=== PATIENT | male | born 1990 | race African-American/Black ===

== ENCOUNTER 2016-06-17 11:56 | Inpatient (IN) | payer MEDICAID ==
[~2016-06-17] VITALS: Ht 177.8 cm; Wt 79.2 kg
[2016-06-17] MEDS ORDERED: SODIUM CHLORIDE 0.9% 1,000 ML IV ONE ×2 (12:50→15:00)
[2016-06-17] MEDS ORDERED: HYDROmorphone HCL 2 MG/ML VL IV ONE (13:00)
[2016-06-17] MEDS ORDERED: ONDANSETRON HCL 4 MG/2 ML VIAL IV ONE (13:00)
[2016-06-17 13:18] LABS: Basophils # (auto) 0.1 uL; Basophils % (auto) 0.5 % (0.0-2.0); Eosinophils # (auto) 0.2 uL; Hematocrit 29.6 % (41.0-53.0); Hemoglobin 10.2 g/dL (13.5-17.5); Lymphocytes # (auto) 2.7 uL; Lymphocytes % (auto) 26.1 % (10.0-50.0); Mean Corpuscular Hemoglobin 28.3 pg (28.0-32.0); Mean Corpuscular Hgb Conc. 34.3 g/dL (32.0-36.0); Mean Corpuscular Volume 82.5 fL (80.0-100.0); Mean Platelet Volume 7.9 fL (7.4-10.4); Monocytes # (auto) 0.6 uL; Monocytes % (auto) 5.6 % (0.0-12.0); Neutrophils # (auto) 6.7 uL; Neutrophils % (auto) 65.8 % (37.0-80.0); Platelet Count (auto) 210 10^3/uL (140-450); Red Cell Distribution Width 15.5 % (11.6-16.0); White Blood Cell 10.2 10^3/uL (4.4-10.8)
[2016-06-17 13:39] LABS: Lactic Acid w/Reflex 3.3 mmol/L (0.4-2.0)
[2016-06-17 13:41] LABS: Bilirubin, Total 0.5 mg/dL (0.2-1.0); Calcium 7.6 mg/dL (8.5-10.1); Magnesium 1.6 mg/dL (1.6-2.6); Total Protein 6.7 g/dL (6.4-8.2)
[2016-06-17 13:48] LABS: Potassium 1.8 mmol/L (3.5-5.1)
[2016-06-17 14:09] LABS: REFLEX LACTIC ACID YES OR NO YES
[2016-06-17] MEDS: POTASSIUM CHL 20MEQ/100ML 100 ML IV SCH ×4 (14:21→21:55)
[2016-06-17] MEDS ORDERED: NITROGLYCERIN 0.4 MG SL TAB SL PRN (14:30)
[2016-06-17] MEDS ORDERED: MORPHINE SULF INJ 2 MG/ML SYRINGE 1ML IV PRN (14:30)
[2016-06-17] MEDS ORDERED: POTASSIUM CHL 20 Meq TABLET PO ONE (14:30)
[2016-06-17] MEDS ORDERED: diphenhdrAMINE HCL 25 MG CAP PO ONE (14:45)
[2016-06-17] MEDS ORDERED: ACETAMINOPHEN 325 MG TAB PO ONE (14:45)
[2016-06-17] MEDS ORDERED: [UNRECOGNIZED DRUG - CODE] IV (14:54)
[2016-06-17 15:46] LABS: Urine RBC None Seen /hpf (0 - 3)
[2016-06-17 16:18] LABS: Urine Bilirubin Negative (Negative); Urine Blood Negative /uL (Negative); Urine Color Yellow (Yellow); Urine Glucose Normal (Normal); Urine Ketone Negative (Negative); Urine Nitrite Negative (Negative); Urine Squamous Epithelial Cell FEW /hpf (<5); Urine Urobilinogen Normal (Negative)
[2016-06-17] MEDS: MAGNESIUM SULFATE 1GM/100ML 100 ML IV SCH ×2 (16:36→19:19)
[2016-06-17] MEDS ORDERED: MAGNESIUM SULFATE 1GM/100ML 100 ML IV SCH (19:00)
[2016-06-17] MEDS: MORPHINE SULF INJ 2 MG/ML SYRINGE 1ML IV PRN ×2 (19:19→23:04)
[2016-06-17 20:00] VITALS: BP 141/84
[2016-06-17] MEDS ORDERED: D5W 5% IV SCH (20:00)
[2016-06-17] MEDS ORDERED: AMPHOTERICIN B IV SCH (20:00)
[2016-06-17 22:01] VITALS: BP 141/84
[2016-06-17 22:31] LABS: Calcium 6.5 mg/dL (8.5-10.1); Magnesium 1.8 mg/dL (1.6-2.6)
[2016-06-17 22:33] LABS: Potassium 2.1 mmol/L (3.5-5.1)
[2016-06-18] MEDS: SOD CHL 0.45% WITH 20MEQ KCL 1,000 ML IV SCH ×4 (00:29→20:52)
[2016-06-18] MEDS ORDERED: POTASSIUM CHL 20 Meq TABLET PO ONE ×2 (02:00→10:45)
[2016-06-18] MEDS: MORPHINE SULF INJ 2 MG/ML SYRINGE 1ML IV PRN ×2 (03:12→08:21)
[2016-06-18] MEDS: ONDANSETRON HCL 4 MG/2 ML VIAL IV PRN ×3 (03:13→23:03)
[2016-06-18 05:00] VITALS: BP 136/93
[2016-06-18 05:28] LABS: Calcium 6.2 mg/dL (8.5-10.1); Magnesium 1.9 mg/dL (1.6-2.6)
[2016-06-18 05:31] LABS: BUN/Creatinine Ratio 4.6
[2016-06-18 05:35] LABS: Potassium 2.6 mmol/L (3.5-5.1)
[2016-06-18 08:44] VITALS: BP 144/94
[2016-06-18] MEDS ORDERED: CALCIUM GLUC 4.65 MEQ/10ML 4.65 MEQ in SODIUM CHL 0.9% 50 ML IV ONE (10:45)
[2016-06-18] MEDS: MAGNESIUM SULFATE 1GM/100ML 100 ML IV SCH ×2 (12:00→15:07)
[2016-06-18] MEDS: HYDROmorphone HCL 2 MG/ML VL IV PRN ×3 (12:14→20:52)
[2016-06-18 12:53] VITALS: BP 140/95
[2016-06-18] MEDS: POTASSIUM CHL 20MEQ/100ML 100 ML IV SCH ×2 (13:02→15:52)
[2016-06-18] MEDS ORDERED: MAGNESIUM SULFATE 1GM/100ML 100 ML IV ONE (17:00)
[2016-06-18 17:04] VITALS: BP 145/81
[2016-06-18] MEDS: HYDROcodone-ACET 5/325MG TAB PO PRN (18:59)
[2016-06-18] MEDS: D5W 5% IV SCH (20:00)
[2016-06-18] MEDS: ABELCET IV SCH (20:00)
[2016-06-18 22:00] VITALS: BP 148/100
[2016-06-19] VITALS (7 sets, daily range): BP systolic 131–154; BP diastolic 81–117
[2016-06-19] MEDS: SOD CHL 0.45% WITH 20MEQ KCL 1,000 ML IV SCH ×2 (01:09→02:25)
[2016-06-19] MEDS: HYDROmorphone HCL 2 MG/ML VL IV PRN ×5 (01:09→20:07)
[2016-06-19 05:49] LABS: BUN/Creatinine Ratio 4.2; Calcium 6.5 mg/dL (8.5-10.1); Magnesium 1.9 mg/dL (1.6-2.6); Phosphorus 1.4 mg/dL (2.5-4.90); Potassium 3.7 mmol/L (3.5-5.1)
[2016-06-19] MEDS: ONDANSETRON HCL 4 MG/2 ML VIAL IV PRN ×2 (08:11→16:12)
[2016-06-19] MEDS: HYDROcodone-ACET 5/325MG TAB PO PRN ×2 (08:11→15:33)
[2016-06-19] MEDS ORDERED: POTASSIUM PHOSPHATE 26.4 MEQ in SODIUM CHL 0.9% 100 ML IV ONE (10:00)
[2016-06-19] MEDS ORDERED: SODIUM PHOSPH 24MEQ(18MMOL) IN NS 100 ML IV ONE (10:30)
[2016-06-19] MEDS ORDERED: diphenhdrAMINE HCL 50 MG/1 ML VL IM ONE (13:00)
[2016-06-19] MEDS ORDERED: ACETAMINOPHEN 325 MG TAB PO ONE (13:00)
[2016-06-19] MEDS: D5W 5% IV SCH (17:26)
[2016-06-19] MEDS: ABELCET IV SCH (17:26)
[2016-06-20] MEDS: HYDROmorphone HCL 2 MG/ML VL IV PRN ×2 (00:22→04:28)
[2016-06-20 04:58] VITALS: BP 141/108
[2016-06-20 07:07] VITALS: BP 137/87
== END 2016-06-20 09:54 | disposition home or self-care (01) | DRG 425 ==
LOC: ER 12:06 → TELE 12:07 → TELE-CENTR 15:46 → TELE-E-ADS 15:50 → TELE-CENTR 18:07
PROVIDERS: ADMIT Internal Medicine; ATTEND Internal Medicine
DX: E87.6 Hypokalemia (principal); E87.0 Hyperosmolality and hypernatremia; B38.0 Acute pulmonary coccidioidomycosis; E87.1 Hypo-osmolality and hyponatremia; I10 Essential (primary) hypertension; F17.210 Nicotine dependence, cigarettes, uncomplicated; E83.42 Hypomagnesemia; E83.51 Hypocalcemia; E83.39 Other disorders of phosphorus metabolism; F12.90 Cannabis use, unspecified, uncomplicated; R74.8 Abnormal levels of other serum enzymes; Z90.89 Acquired absence of other organs; Z86.61 Personal history of infections of the central nervous system
CPT/HCPCS: 36415; 71010; 80048; 80053; 81001; 82962; 83605; 83735; 84100; 84132; 84484; 85025; 87040; 87081; 96374; 96375; 97110; 97116; 97530; 99291; J2405; J3480